=== PATIENT | female | born 1960 | race Hispanic/Latino ===

== ENCOUNTER 2016-11-21 08:27 | Day surgery (SDC) | payer OTHER ==
[~2016-11-21] VITALS: Ht 165.1 cm; Wt 90.9 kg
[~2016-11-21 08:27] MED LIST: AMBIEN5 MG PO; ELAVIL10 MG PO; ESTRACE42.5 GM VG; PERCOCET 7.51 TABLET PO; RELAFEN750 MG PO; ULTRAM50 MG PO; ZANAFLEX2 M1 PO
== END 2016-11-21 10:35 | disposition home or self-care (01) ==
LOC: PAIN 08:27 → SDC 09:15 → PAIN 10:35
PROC: 3E0S3BZ Introduction of Anesthetic Agent into Epidural Space, Percutaneous Approach (ICD-10-PCS; principal; 2016-11-21)
PROC: 3E0S33Z Introduction of Anti-inflammatory into Epidural Space, Percutaneous Approach (ICD-10-PCS; principal; 2016-11-21)
DX: M54.16 Radiculopathy, lumbar region (principal); M51.36 Other intervertebral disc degeneration, lumbar region; F41.1 Generalized anxiety disorder; M47.896 Other spondylosis, lumbar region
CPT/HCPCS: J1100; J2250; J3010